=== PATIENT | female | born 1980 | race Asian ===

== ENCOUNTER 2024-10-22 13:08 | Emergency (ER) | payer OTHER ==
[~2024-10-22] VITALS: Ht 162.6 cm; Wt 45.5 kg
[2024-10-22 13:13] VITALS: TEMP 98.6
[2024-10-22] MEDS ORDERED: TRAZ-252 PO (13:17)
[2024-10-22] MEDS ORDERED: DICL25TA9 PO (13:17)
[2024-10-22] MEDS ORDERED: FERR325T27 PO (13:17)
[2024-10-22] MEDS ORDERED: LISI-893 PO (13:17)
[2024-10-22] MEDS ORDERED: ATEN-73 PO (13:17)
[2024-10-22] MEDS ORDERED: GABA-1181 PO (13:17)
[2024-10-22] MEDS ORDERED: VENL50TA44 PO (13:17)
[2024-10-22] MEDS ORDERED: ATOR20TA PO (13:17)
[2024-10-22] MEDS ORDERED: ALBU2.5V39 NEB (13:22)
[2024-10-22] MEDS ORDERED: INSLAN SQ (13:22)
[2024-10-22] MEDS ORDERED: PREN-67 PO (13:22)
[2024-10-22] MEDS ORDERED: RISP0.5T80 PO (13:22)
[2024-10-22] MEDS ORDERED: BECL10.6 IH (13:22)
[2024-10-22] MEDS ORDERED: AMLO-257 PO (13:22)
[2024-10-22] MEDS: ACETAMINOPHEN 325 MG TABLET PO ONE (16:01)
[2024-10-22] MEDS: DOXYCYCLINE HYCLATE 100 MG TABLET PO ONE (16:01)
[2024-10-22] MEDS ORDERED: DOXY-354 PO (17:04)
[2024-10-22 17:19] VITALS: BP 133/62; PULSE 89; RESP 18; O2SAT 100
== END 2024-10-22 17:20 | disposition home or self-care (01) ==
LOC: EMS 13:11
DX: L03.011 Cellulitis of right finger (principal); F41.9 Anxiety disorder, unspecified; E11.9 Type 2 diabetes mellitus without complications; E78.00 Pure hypercholesterolemia, unspecified; I10 Essential (primary) hypertension; F20.9 Schizophrenia, unspecified; Z79.1 Long term (current) use of non-steroidal anti-inflammatories (NSAID); Z79.4 Long term (current) use of insulin; Z79.51 Long term (current) use of inhaled steroids; Z79.899 Other long term (current) drug therapy
CPT/HCPCS: 99283